=== PATIENT | female | born 1960 | race Caucasian/White ===

== ENCOUNTER 2017-11-27 14:26 | Emergency (ER) | payer BC ==
[~2017-11-27] VITALS: Ht 182.9 cm; Wt 78.0 kg
== END 2017-11-27 14:50 | disposition home or self-care (01) ==
LOC: FSED 14:26
DX: R30.0 Dysuria (principal); N89.8 Other specified noninflammatory disorders of vagina; F31.9 Bipolar disorder, unspecified; F41.9 Anxiety disorder, unspecified
CPT/HCPCS: 81003; 99283